=== PATIENT | female | born 1935 | race Caucasian/White ===

== ENCOUNTER 2021-10-06 10:23 | Emergency (ER) | payer MEDICARE ==
[~2021-10-06] VITALS: Ht 170.2 cm; Wt 68.0 kg
[~2021-10-06 10:23] MED LIST: ACCUPRIL20 MG PO; AMOXICILLIN/CL875 MG PO; ASA LO-DOSE81 MG OR; AUGMENTIN875TAB PO; BABY ASPIRIN81 MG PO; BENADRYL25 M1 PO; CIPRO500 MG PO; CIPROFLOXACN500 MG PO; CLARITIN-D1 TA1 PO; CLARITIN10 M1 PO; FISH OIL1000 M1 PO; HYDROCHLOROT25 MG PO; LIPITOR10 MG PO; LIPITOR40 MG OR; LISINOPRIL20 M1 PO; LISINOPRIL40 MG PO; LOPID600 MG PO; LUTEIN1 CAP PO; MULTIVITAMI1 OR; NIACIN500 M4 PO; NIACIN500 MG OR; OCUVIT1 PO; OCUVITE EYE PO; RED YEAST600 MG OR; TENORMIN25 M1 PO; VITAMIN D31000 UNI1 OR; [UNRECOGNIZED DRUG - OTHER] OR; [UNRECOGNIZED DRUG - OTHER] PO
[2021-10-06 12:14] LABS: HEMATOCRIT 53.8 % (37.0-47.0); HEMOGLOBIN 17.2 g/dl (12.0-16.0); IMMATURE GRANULOCYTES 0.3 % (0.0-5.0); MEAN CELL VOLUME 91.8 fL CALC (80.0-100.0); MEAN CORPUSCULAR HGB 29.4 pG CALC (26.0-32.0); NEUT# 7.71 thou/uL (2.00-7.15); RED BLOOD COUNT 5.86 mill/uL (4.20-5.60); RED CELL DISTRI WIDTH 12.9 % (11.5-15.5)
[2021-10-06 12:42] LABS: ALBUMIN 4.4 g/dL (3.2-5.0); ALKALINE PHOSPHATASE 82 u/l (38-126); AMYLASE 80 u/l (30-110); ANION GAP 12 (6-22 (CALC)); BILIRUBIN, TOTAL 1.1 mg/dL (0.0-1.4); BUN 13 mg/dL (8-23); BUN/CREATININE RATIO 14 (12-20 (CALC)); CARBON DIOXIDE 29 mmol/l (22-30); CHLORIDE 103 mmol/l (95-108); CREATININE 0.9 mg/dL (0.5-1.0); GFR 60 ML/MIN (>=60 (CALC)); GFR FOR AFR.AMER. > 60 ML/MIN (>=60 (CALC)); LIPASE 68 u/l (23-300); POTASSIUM 4.3 mmol/l (3.5-5.1); SGOT/AST 20 u/l (9-36); SODIUM 140 mmol/l (137-146)
[2021-10-06 14:09] LABS: URINE BILIRUBIN - DIPSTICK NEGATIVE (NEGATIVE); URINE COLOR YELLOW; URINE GLUCOSE - DIPSTICK NEGATIVE (NEGATIVE); URINE KETONE TRACE mg/dL (NEGATIVE); URINE LEUK ESTERASE NEGATIVE (NEGATIVE); URINE PH 6.5 (4.5-8.0); URINE UROBILINOGEN - DIPSTICK 0.2 E.U./dL (0.2)
[2021-10-06 14:11] LABS: URINE BLOOD DIPSTICK TRACE (NEGATIVE); URINE NITRITE - DIPSTICK NEGATIVE (Negative); URINE PROTEIN - DIPSTICK Trace mg/dL (NEG-TRACE)
[2021-10-06 15:40] VITALS: BP 148/97
[2021-10-06] MEDS ORDERED: ZOFRAN4 MG/TAB PO (15:40)
[2021-10-06] MEDS ORDERED: TAMSULOSIN0.4 MG PO (15:40)
[2021-10-06] MEDS ORDERED: HYDROCO/APAP1 TA9 PO (15:40)
== END 2021-10-06 15:58 | disposition home or self-care (01) ==
LOC: ED 10:23
DX: N20.1 Calculus of ureter (principal); I10 Essential (primary) hypertension; F17.200 Nicotine dependence, unspecified, uncomplicated
CPT/HCPCS: Q9967

== ENCOUNTER 2023-02-11 13:15 | Inpatient (IN) | payer MEDICARE ==
[~2023-02-11] VITALS: Ht 170.2 cm; Wt 63.0 kg
[~2023-02-11 13:15] MED LIST changes: +HYDROCO/APAP1 TA9 PO; +TAMSULOSIN0.4 MG PO; +ZOFRAN4 MG/TAB PO
[2023-02-11 13:46] LABS: BASO% 0.4 % (0-3); EOS% 0.1 % (0-8); HEMATOCRIT 46.2 % (37.0-47.0); HEMOGLOBIN 14.7 g/dl (12.0-16.0); IMMATURE GRANULOCYTES 0.2 % (0.0-5.0); LYMPH% 8.4 % (15-41); MEAN CELL VOLUME 93.3 fL CALC (80.0-100.0); MEAN CORPUSCULAR HGB 29.7 pG CALC (26.0-32.0); MEAN CORPUSCULAR HGB CONC 31.8 g/dL CAL (32.0-36.0); MONO% 6.3 % (2-13); NEUT# 6.89 thou/uL (2.00-7.15); NEUT% 84.6 % (42-76); RED BLOOD COUNT 4.95 mill/uL (4.20-5.60); RED CELL DISTRI WIDTH 13.1 % (11.5-15.5)
[2023-02-11 14:04] LABS: ALKALINE PHOSPHATASE 72 u/l (38-126); ANION GAP 15 (6-22 (CALC)); BILIRUBIN, TOTAL 1.6 mg/dL (0.02-1.3); BUN 14 mg/dL (8-23); BUN/CREATININE RATIO 19 (12-20 (CALC)); CARBON DIOXIDE 23 mmol/l (22-30); CHLORIDE 108 mmol/l (95-108); CREATININE 0.7 mg/dL (0.5-1.0); GFR FOR AFR.AMER. > 60 ML/MIN (>=60 (CALC)); GFR OTHER RACES > 60 ML/MIN (>=60 (CALC)); POTASSIUM 4.1 mmol/l (3.5-5.1); SGOT/AST 26 u/l (9-36); SODIUM 142 mmol/l (137-146); TOTAL PROTEIN 6.8 g/dL (6.3-8.2)
[2023-02-11] MEDS ORDERED: LOPRESSOR25 M1 PO (17:20)
[2023-02-11] MEDS ORDERED: LISINOPRIL20 M1 PO (17:21)
[2023-02-11] MEDS ORDERED: PRADAXA150 M1 (17:21)
[2023-02-11] MEDS ORDERED: ALBUTEROL108 MCG/AC (17:22)
[2023-02-12] VITALS (8 sets, daily range): BP systolic 110–138; BP diastolic 55–86
[2023-02-13 04:08] VITALS: BP 138/92
[2023-02-13 05:46] LABS: HEMATOCRIT 48.5 % (37.0-47.0); HEMOGLOBIN 15.3 g/dl (12.0-16.0); MEAN CORPUSCULAR HGB 29.7 pG CALC (26.0-32.0); MEAN CORPUSCULAR HGB CONC 31.5 g/dL CAL (32.0-36.0); RED BLOOD COUNT 5.16 mill/uL (4.20-5.60); RED CELL DISTRI WIDTH 13.4 % (11.5-15.5)
[2023-02-13 06:00] LABS: ALBUMIN 3.9 g/dL (3.2-5.0); ALKALINE PHOSPHATASE 57 u/l (38-126); ANION GAP 16 (6-22 (CALC)); BUN 26 mg/dL (8-23); BUN/CREATININE RATIO 28 (12-20 (CALC)); CARBON DIOXIDE 23 mmol/l (22-30); CHLORIDE 104 mmol/l (95-108); CREATININE 0.9 mg/dL (0.5-1.0); GFR FOR AFR.AMER. > 60 ML/MIN (>=60 (CALC)); GFR OTHER RACES 59 ML/MIN (>=60 (CALC)); MAGNESIUM 2.3 mg/dL (1.6-2.3); POTASSIUM 4.9 mmol/l (3.5-5.1); SGOT/AST 29 u/l (9-36); SODIUM 138 mmol/l (137-146); TOTAL PROTEIN 6.9 g/dL (6.3-8.2)
[2023-02-13 06:05] LABS: BILIRUBIN, TOTAL 0.7 mg/dL (0.02-1.3)
[2023-02-13 08:00] VITALS: BP 135/72
[2023-02-13 16:14] VITALS: BP 130/72
[2023-02-13 20:51] VITALS: BP 130/75
[2023-02-14 00:32] VITALS: BP 122/74
[2023-02-14 05:05] VITALS: BP 137/74
[2023-02-14 06:09] LABS: HEMATOCRIT 51.5 % (37.0-47.0); HEMOGLOBIN 15.9 g/dl (12.0-16.0); MEAN CELL VOLUME 96.8 fL CALC (80.0-100.0); MEAN CORPUSCULAR HGB 29.9 pG CALC (26.0-32.0); MEAN CORPUSCULAR HGB CONC 30.9 g/dL CAL (32.0-36.0); RED BLOOD COUNT 5.32 mill/uL (4.20-5.60); RED CELL DISTRI WIDTH 13.7 % (11.5-15.5)
[2023-02-14 06:20] VITALS: BP 128/70
[2023-02-14 06:42] LABS: ALBUMIN 3.8 g/dL (3.2-5.0); ALKALINE PHOSPHATASE 52 u/l (38-126); ANION GAP 18 (6-22 (CALC)); BILIRUBIN, TOTAL 0.9 mg/dL (0.02-1.3); BUN 30 mg/dL (8-23); BUN/CREATININE RATIO 34 (12-20 (CALC)); CARBON DIOXIDE 20 mmol/l (22-30); CHLORIDE 104 mmol/l (95-108); CREATININE 0.9 mg/dL (0.5-1.0); GFR FOR AFR.AMER. > 60 ML/MIN (>=60 (CALC)); GFR OTHER RACES 59 ML/MIN (>=60 (CALC)); MAGNESIUM 2.5 mg/dL (1.6-2.3); SGOT/AST 36 u/l (9-36); SODIUM 137 mmol/l (137-146)
[2023-02-14 14:15] VITALS: BP 122/76
[2023-02-14 19:46] VITALS: BP 132/74
[2023-02-14 23:57] VITALS: BP 121/70
[2023-02-15 05:19] VITALS: BP 122/70
[2023-02-15 07:04] VITALS: BP 138/68
[2023-02-15 07:31] LABS: BASO% 0.1 % (0-3); HEMATOCRIT 46.5 % (37.0-47.0); HEMOGLOBIN 14.7 g/dl (12.0-16.0); IMMATURE GRANULOCYTES 0.3 % (0.0-5.0); MEAN CORPUSCULAR HGB 29.4 pG CALC (26.0-32.0); MEAN CORPUSCULAR HGB CONC 31.6 g/dL CAL (32.0-36.0); MONO% 2.7 % (2-13); NEUT# 6.3 thou/uL (2.00-7.15); NEUT% 92.9 % (42-76); RED CELL DISTRI WIDTH 13.1 % (11.5-15.5)
[2023-02-15 08:09] LABS: ALBUMIN 3.6 g/dL (3.2-5.0); ALKALINE PHOSPHATASE 55 u/l (38-126); BILIRUBIN, TOTAL 0.9 mg/dL (0.02-1.3); BUN 31 mg/dL (8-23); BUN/CREATININE RATIO 40 (12-20 (CALC)); CHLORIDE 104 mmol/l (95-108); CREATININE 0.8 mg/dL (0.5-1.0); GFR FOR AFR.AMER. > 60 ML/MIN (>=60 (CALC)); GFR OTHER RACES > 60 ML/MIN (>=60 (CALC)); MAGNESIUM 2.4 mg/dL (1.6-2.3); SGOT/AST 37 u/l (9-36); SODIUM 137 mmol/l (137-146); TOTAL PROTEIN 6.1 g/dL (6.3-8.2)
[2023-02-15 08:11] LABS: ANION GAP 11 (6-22 (CALC)); CARBON DIOXIDE 27 mmol/l (22-30); POTASSIUM 5.3 mmol/l (3.5-5.1)
[2023-02-15 11:03] VITALS: BP 130/70
[2023-02-15] MEDS ORDERED: PREDNISONE10 MG PO (14:14)
[2023-02-15] MEDS ORDERED: VIBRAMYCIN100 M2 PO (14:16)
[2023-02-15] MEDS ORDERED: LASIX 20 MG TAB20 MG PO (14:24)
== END 2023-02-15 15:20 | disposition home health service (06) | DRG 193 ==
LOC: ED 13:15 → ED-I 16:07 → ED 16:22 → MS2 16:23
PROVIDERS: Family Medicine; Nurse Practitioner Family; ADMIT Internal Medicine; ATTEND Internal Medicine
DX: J18.9 Pneumonia, unspecified organism (principal); J96.21 Acute and chronic respiratory failure with hypoxia; I11.0 Hypertensive heart disease with heart failure; J43.9 Emphysema, unspecified; I50.9 Heart failure, unspecified; I48.91 Unspecified atrial fibrillation; Z87.891 Personal history of nicotine dependence; Z20.822 Contact with and (suspected) exposure to COVID-19
CPT/HCPCS: Q9967

== ENCOUNTER 2023-02-16 07:09 | Observation (INO) | payer MEDICARE ==
[2023-02-16] VITALS (14 sets, daily range): BP systolic 136–191; BP diastolic 87–128
[~2023-02-16] VITALS: Ht 170.2 cm; Wt 59.2 kg
[~2023-02-16 07:09] MED LIST changes: +ALBUTEROL108 MCG/AC; +LASIX 20 MG TAB20 MG PO; +LOPRESSOR25 M1 PO; +PRADAXA150 M1; +PREDNISONE10 MG PO; +VIBRAMYCIN100 M2 PO
--- NOTE | 2023-02-16 07:09 | NUR ---
PATIENT TO ROOM VIA EMS
--- NOTE | 2023-02-16 08:00 | NUR ---
RECTAL TEMPERATURE WAS 99.1 DEGREES F. NOTIFIED
--- NOTE | 2023-02-16 08:00 | NUR ---
PATIENT ASSISTED TO BEDSIDE COMODE
[2023-02-16 08:10] LABS: BASO% 0.1 % (0-3); HEMATOCRIT 48.4 % (37.0-47.0); HEMOGLOBIN 15.5 g/dl (12.0-16.0); IMMATURE GRANULOCYTES 0.8 % (0.0-5.0); LYMPH% 2.3 % (15-41); MEAN CELL VOLUME 93.1 fL CALC (80.0-100.0); MEAN CORPUSCULAR HGB 29.8 pG CALC (26.0-32.0); MONO% 5.2 % (2-13); NEUT# 8.68 thou/uL (2.00-7.15); NEUT% 91.6 % (42-76); RED BLOOD COUNT 5.2 mill/uL (4.20-5.60); RED CELL DISTRI WIDTH 13.3 % (11.5-15.5)
[2023-02-16 08:13] LABS: ALBUMIN 3.8 g/dL (3.2-5.0); ALKALINE PHOSPHATASE 71 u/l (38-126); ANION GAP 15 (6-22 (CALC)); BILIRUBIN, TOTAL 0.6 mg/dL (0.02-1.3); BUN 35 mg/dL (8-23); BUN/CREATININE RATIO 38 (12-20 (CALC)); CARBON DIOXIDE 24 mmol/l (22-30); CHLORIDE 105 mmol/l (95-108); CREATININE 0.9 mg/dL (0.5-1.0); GFR FOR AFR.AMER. > 60 ML/MIN (>=60 (CALC)); GFR OTHER RACES 59 ML/MIN (>=60 (CALC)); POTASSIUM 4.8 mmol/l (3.5-5.1); SGOT/AST 60 u/l (9-36); SODIUM 139 mmol/l (137-146); TOTAL PROTEIN 6.5 g/dL (6.3-8.2)
--- NOTE | 2023-02-16 08:15 | NUR ---
LACTIC ACIDE 3.6, MADE AWARE
--- NOTE | 2023-02-16 08:41 | NUR ---
MD AT BESIDE TO DISCUSS PLAN OF CARE
--- NOTE | 2023-02-16 09:45 | NUR ---
ASSISTED PATIENT TO BEDSIDE COMODE
--- NOTE | 2023-02-16 10:16 | NUR ---
ASSISTED PATIENT TO BSC.
--- NOTE | 2023-02-16 10:53 | NUR ---
CALLED REPORT TO GG ON MED SURG. SHE VERIFIED REPORT RECIEVED. PATIENT TRANSFERRED UPSTAIRS VIA WHEELCHAIR
--- NOTE | 2023-02-16 12:00 | NUR ---
PT A/OX3 ASSESSMENT AND VS COMPLETED. HEART MONITOR FOUND ON BED NOT CONNECTED TO PT . PT ATTACHED TO MONITOR. IV SITE NOTED TO LEFT ARM ABX INFUSING. PT ON OXYGEN PT USES OXYGEN AT HOME. PT AMBULATORY TO BSC. PT DENIES ADDITIONAL NEEDS AT THE TIME ALL SAFETY PRECAUTIONS IN PLACE PT ARRIVED TO MS [id number]
--- NOTE | 2023-02-16 16:07 | NUR ---
PT RESTING IN HIGH FOWLERS POSITION. PT DENIES ADDITIONAL NEEDS AT THIS TIME VISITOR AT BEDSIDE.
--- NOTE | 2023-02-16 19:30 | NUR ---
PT SITTING IN BED EATING DINNER NO S/S OF DISTESS NOTED. CALL LIGHT IN REACH BED IN LOWEST POSITION.
[2023-02-17] VITALS (9 sets, daily range): BP systolic 130–188; BP diastolic 76–121
--- NOTE | 2023-02-17 00:20 | NUR ---
PT IN BED RESTING WITH EYES CLOSED BREATHING EVEN AND UNLABORED. NO S/S OF DISTRESS NOTED. CALL LIGHT IN REACH
[2023-02-17 05:27] LABS: HEMATOCRIT 44.1 % (37.0-47.0); HEMOGLOBIN 14.4 g/dl (12.0-16.0); MEAN CELL VOLUME 91.9 fL CALC (80.0-100.0); MEAN CORPUSCULAR HGB CONC 32.7 g/dL CAL (32.0-36.0); RED BLOOD COUNT 4.8 mill/uL (4.20-5.60); RED CELL DISTRI WIDTH 13.2 % (11.5-15.5)
[2023-02-17 06:00] LABS: ALBUMIN 3.1 g/dL (3.2-5.0); CREATININE 1.1 mg/dL (0.5-1.0); MAGNESIUM 2.3 mg/dL (1.6-2.3); POTASSIUM 4.1 mmol/l (3.5-5.1); TOTAL PROTEIN 5.3 g/dL (6.3-8.2)
[2023-02-17 06:14] LABS: BILIRUBIN, TOTAL 1.2 mg/dL (0.02-1.3)
--- NOTE | 2023-02-17 06:40 | NUR ---
PT BP IS ELEVATED THIS AM. PT MEDICATED ORDER BY RN.
--- NOTE | 2023-02-17 16:00 | NUR ---
NO CHANGES PATIENT RESTING. PATIENT ABLE TO USE BSC WITHOUT ASSISTANCE. PATIENT HAD TO GET A NEW IV DUE TO THE LAST ONE LEAKING. PATIENT'S ARM HAVE MULTIPLE BRUISES AND BILATERAL SKIN TEARS. DRESSINGS ARE IN PLACE ON THE SKIN TEARS. PATIENT HAD FIRENDS VISIT HER TODAY. PATIENT REPORTS NO PAIN. PATIENT REPORTS FEELING BETTER AND NO PAIN. WILL CONTINUE TO MONITOR.
--- NOTE | 2023-02-17 21:30 | NUR ---
PT IN BE AWAKE. NO S/S OF DISTRESS NOTED BREATHING EVEN AND UNLABORED. ASSESMENT COMPLETED. CALLING IN REACH AND BED IN LOWEST POSITION.
[2023-02-18] VITALS (9 sets, daily range): BP systolic 124–169; BP diastolic 77–111
--- NOTE | 2023-02-18 04:00 | NUR ---
PT IN BED RESTING WITH EYES CLOSED BREATHING EVEN AND UNLABORED NO S/S OF DISTRESS NOTED. CALL LIGHT IN REACH AND BED IN LOWEST POSITION.
[2023-02-18 05:48] LABS: HEMATOCRIT 47.6 % (37.0-47.0); HEMOGLOBIN 15.4 g/dl (12.0-16.0); MEAN CELL VOLUME 91.4 fL CALC (80.0-100.0); MEAN CORPUSCULAR HGB 29.6 pG CALC (26.0-32.0); MEAN CORPUSCULAR HGB CONC 32.4 g/dL CAL (32.0-36.0); RED BLOOD COUNT 5.21 mill/uL (4.20-5.60); RED CELL DISTRI WIDTH 13.3 % (11.5-15.5)
[2023-02-18 06:14] LABS: ALBUMIN 3.3 g/dL (3.2-5.0); ALKALINE PHOSPHATASE 43 u/l (38-126); ANION GAP 10 (6-22 (CALC)); BILIRUBIN, TOTAL 1.3 mg/dL (0.02-1.3); BUN 35 mg/dL (8-23); BUN/CREATININE RATIO 39 (12-20 (CALC)); CARBON DIOXIDE 30 mmol/l (22-30); CHLORIDE 101 mmol/l (95-108); CREATININE 0.9 mg/dL (0.5-1.0); GFR FOR AFR.AMER. > 60 ML/MIN (>=60 (CALC)); GFR OTHER RACES 59 ML/MIN (>=60 (CALC)); MAGNESIUM 2.3 mg/dL (1.6-2.3); POTASSIUM 3.9 mmol/l (3.5-5.1); SGOT/AST 22 u/l (9-36); SODIUM 138 mmol/l (137-146); TOTAL PROTEIN 5.5 g/dL (6.3-8.2)
--- NOTE | 2023-02-18 06:30 | NUR ---
IV STARTED LEAKING. NEW IV STARTED BY CLINICAL SCIENCE LIAISON WITHOUT COMPLICATIONS. CALL LIGHT IN REACH AND BED IN LOWEST POSITION.
--- NOTE | 2023-02-18 08:00 | NUR ---
PATIENT RESTING IN BED. REPORTS NO PAIN. ASSESSMENT DONE. PATIENT STILL ON NC 2L O2. LUNGS SOUND CLEAR BUT DIMINISH AT THE BOTTOM. PATIENT STATING THAT SHE FEELS BETTER AND THAT HER BREATHING HAS IMPROVED. WILL CONTINUE TO MONITOR.
--- NOTE | 2023-02-18 12:00 | NUR ---
PATIENT SETTING ON SIDE OF BED. MULTIPLE FAMILY MEMBERS AND FRIENDS AT BEDSIDE. MD WAS ABLE TO GIVE PATIENT AN UPDATE WITH FAMILY THERE. CARDIOLOGY WAS CONSULT. AWAITING FURTHER RECOMENDATION. PATIENT STILL REPORTING NO PAIN AND FEELING BETTER. WILL CONTINUE TO MONITOR.
--- NOTE | 2023-02-18 13:38 | NUR ---
called office at [phone] spoke to heide stated she will hand off the information on this pt to the nurse and they will call back.
--- NOTE | 2023-02-18 16:00 | NUR ---
PATIENT RESTING NO CHANGES AT THIS TIME. WILL CONTINUE TO MONITOR.
--- NOTE | 2023-02-18 17:10 | NUR ---
PRELIMINARY BLOOD CULTURES CALLED TO / VIALS GROWING GRAM (+) COCCI. NO NEW ORDERS AT THIS TIME.
--- NOTE | 2023-02-18 20:00 | NUR ---
RECEIVED REPOR FROM NURSE PENALOZA, PATIENT RESTING IN BED, ALERT ORIENTED ABLE TO MAKE NEEDS KNONW, HAS SALINE LOCK ON RT WRIST, PATENT AND FLUSHES WELL HOOKED ON TELEMETRY, LUNG SOUNDS CLEAR, HOOKED ON O2 @ 3LPM VIA NC, BREATHING SHALLOW, UNLABORED, CALL LIGHT IN REACH.
[2023-02-19] VITALS (11 sets, daily range): BP systolic 138–173; BP diastolic 84–97
--- NOTE | 2023-02-19 | NUR ---
DUE ZOSYN CURRENTLY INFUSING, REMAINS ON O2 @ 2.5LPM VIA NC, NOT IN DISTRESS CALL LIGHT IN REACH.
--- NOTE | 2023-02-19 05:00 | NUR ---
TECH IN ROOM FOR MORNING BLOOD DRAW, PATIENT REMAINS ON O2 @ 2.5 LPM, BREATHING UNLABORED CALL LIGHT IN REACH.
[2023-02-19 06:00] LABS: ALBUMIN 3.2 g/dL (3.2-5.0); ALKALINE PHOSPHATASE 43 u/l (38-126); ANION GAP 10 (6-22 (CALC)); BILIRUBIN, TOTAL 1.6 mg/dL (0.02-1.3); BUN 34 mg/dL (8-23); BUN/CREATININE RATIO 36 (12-20 (CALC)); CARBON DIOXIDE 33 mmol/l (22-30); CHLORIDE 99 mmol/l (95-108); GFR FOR AFR.AMER. > 60 ML/MIN (>=60 (CALC)); GFR OTHER RACES 52 ML/MIN (>=60 (CALC)); MAGNESIUM 2.4 mg/dL (1.6-2.3); POTASSIUM 3.8 mmol/l (3.5-5.1); SGOT/AST 26 u/l (9-36); SODIUM 137 mmol/l (137-146); TOTAL PROTEIN 5.5 g/dL (6.3-8.2)
--- NOTE | 2023-02-19 08:00 | NUR ---
Alert and oriented patient x3. Assessment head-to-toe complete. Patient does not refer pain at the time of this note. Pt connected to telemetry. Good heart and respiratory rhythm at the time of this note. Patient is educated about medications, nursing plan and for today. Patient refers to understanding. Safety and fall precautions in place. Call light within in reach.
--- NOTE | 2023-02-19 12:08 | NUR ---
PATIENT IN ECHO.
--- NOTE | 2023-02-19 16:00 | NUR ---
PATIENT STABLE AT THE TIME OF THIS NOTE. SAFETY AND FALL PRECAUTIONS IN PLACE. CALL LIGHT WITHIN IN REACH.
--- NOTE | 2023-02-19 20:00 | NUR ---
RECEIVED REPORT FROM NURSE VELÁZQUEZ PATIENT RESTING IN BED WATCHING TV, HOOKE ON O2 @ 2.5 LPM SPO2 95%, LUNG SOUNDS DIMINISHED, DENIES PAIN AT THIS TIME, ACTIVE BOWEL SOUNDS, PATIENT NOTE IN DISTRESS CALL LIGHT IN REACH.
--- NOTE | 2023-02-20 | NUR ---
DUE ZOSYN CURRENTLY INFUSING PATIENT REMAINS ON O2 @ 2.5LPM BREATHING UNLBAORED, CALL LIGHT IN REACH.
[2023-02-20 00:47] VITALS: BP 142/88
[2023-02-20 03:00] VITALS: BP 162/115
--- NOTE | 2023-02-20 03:03 | NUR ---
PATIENT C/O CHEST PRESSURE FEELS LIKE INDIGESTION, V/S TAKEN, STAT EKG ORDERED AND TROPONIN.
[2023-02-20 03:25] LABS: HEMATOCRIT 51.7 % (37.0-47.0); HEMOGLOBIN 16.5 g/dl (12.0-16.0); MEAN CELL VOLUME 92.3 fL CALC (80.0-100.0); MEAN CORPUSCULAR HGB 29.5 pG CALC (26.0-32.0); MEAN CORPUSCULAR HGB CONC 31.9 g/dL CAL (32.0-36.0); RED BLOOD COUNT 5.6 mill/uL (4.20-5.60)
[2023-02-20 03:33] LABS: ALBUMIN 3.5 g/dL (3.2-5.0); CREATININE 1.1 mg/dL (0.5-1.0); MAGNESIUM 2.3 mg/dL (1.6-2.3); TOTAL PROTEIN 5.9 g/dL (6.3-8.2)
[2023-02-20 03:44] LABS: POTASSIUM 3.6 mmol/l (3.5-5.1)
[2023-02-20 04:44] VITALS: BP 158/98
--- NOTE | 2023-02-20 04:46 | NUR ---
PATIENT STATED FEEL BETTER, DENIES PAIN AT THIS TIME, REMAINS ON O2 @ 2.5LPM VIA NC, NOT IN DISTRESS CALL LIGHT IN RAECH.
[2023-02-20 07:00] VITALS: BP 139/78
--- NOTE | 2023-02-20 07:00 | NUR ---
RECEIVE REPORT FROM KIRSTIN KEY. PT STABLE RESTING IN BED WITH EYE CLOSE. SAFETY AND FALL PRECAUTIONS IN PLACE. CALL LIGHT WITHIN IN REACH.
[2023-02-20 08:00] VITALS: BP 158/98
[2023-02-20] MEDS ORDERED: LASIX 40 MG TAB40 MG PO (11:55)
[2023-02-20 12:00] VITALS: BP 158/98
--- NOTE | 2023-02-20 12:00 | NUR ---
PATIENT STABLE AT THE TIME OF THIS NOTE. SAFETY AND FALL PRECAUTIONS IN PLACE. CALL LIGHT WITHIN IN REACH.
--- NOTE | 2023-02-20 14:07 | NUR ---
Discharge instructions given. Patient verbalizes understanding of same. Discharged in stable condition via Wheelchair to Home with staff. All belongings sent with pt.
== END 2023-02-20 14:06 | disposition home health service (06) ==
LOC: ED 07:09 → ED-I 09:20 → ED 09:44 → MS2 09:45
PROVIDERS: Family Medicine; ADMIT Internal Medicine; ATTEND Internal Medicine
DX: I11.0 Hypertensive heart disease with heart failure (principal); I50.9 Heart failure, unspecified; J18.9 Pneumonia, unspecified organism; J43.9 Emphysema, unspecified; J96.21 Acute and chronic respiratory failure with hypoxia; I48.91 Unspecified atrial fibrillation; Z87.891 Personal history of nicotine dependence; Z20.822 Contact with and (suspected) exposure to COVID-19

== ENCOUNTER 2023-07-17 10:18 | Emergency (ER) | payer MEDICARE ==
[2023-07-17] VITALS (10 sets, daily range): BP systolic 144–191; BP diastolic 95–136
[~2023-07-17] VITALS: Ht 170.2 cm; Wt 60.0 kg
[~2023-07-17 10:18] MED LIST changes: +LASIX 40 MG TAB40 MG PO
[2023-07-17] MEDS ORDERED: TRELEGY ELLIPTA1 AER IN (10:34)
[2023-07-17 10:50] LABS: BASO% 0.5 % (0-3); EOS% 0.9 % (0-8); HEMATOCRIT 52.7 % (37.0-47.0); HEMOGLOBIN 17.2 g/dl (12.0-16.0); IMMATURE GRANULOCYTES 1.2 % (0.0-5.0); MEAN CELL VOLUME 92.5 fL CALC (80.0-100.0); MEAN CORPUSCULAR HGB 30.2 pG CALC (26.0-32.0); MEAN CORPUSCULAR HGB CONC 32.6 g/dL CAL (32.0-36.0); MONO% 10.1 % (2-13); NEUT# 5.64 thou/uL (2.00-7.15); NEUT% 72.3 % (42-76); RED BLOOD COUNT 5.7 mill/uL (4.20-5.60)
[2023-07-17 11:21] LABS: ALBUMIN 4.6 g/dL (3.2-5.0); ALKALINE PHOSPHATASE 66 u/l (38-126); ANION GAP 14 (6-22 (CALC)); BUN 16 mg/dL (8-23); BUN/CREATININE RATIO 19 (12-20 (CALC)); CARBON DIOXIDE 29 mmol/l (22-30); CHLORIDE 101 mmol/l (95-108); CREATININE 0.8 mg/dL (0.5-1.0); GFR FOR AFR.AMER. > 60 ML/MIN (>=60 (CALC)); GFR OTHER RACES > 60 ML/MIN (>=60 (CALC)); POTASSIUM 4.4 mmol/l (3.5-5.1); SGOT/AST 27 u/l (9-36); SODIUM 140 mmol/l (137-146); TOTAL PROTEIN 8.2 g/dL (6.3-8.2)
[2023-07-17 11:22] LABS: BILIRUBIN, TOTAL 1.6 mg/dL (0.02-1.3)
== END 2023-07-17 14:50 | disposition home or self-care (01) ==
LOC: ED 10:18
PROVIDERS: Family Medicine
DX: M54.6 Pain in thoracic spine (principal); Z20.822 Contact with and (suspected) exposure to COVID-19; J44.9 Chronic obstructive pulmonary disease, unspecified; I48.91 Unspecified atrial fibrillation; I10 Essential (primary) hypertension; M54.50 Low back pain, unspecified
CPT/HCPCS: Q9967

== ENCOUNTER 2024-01-05 08:10 | Inpatient (IN) | payer MEDICARE ==
[~2024-01-05] VITALS: Ht 170.2 cm; Wt 57.4 kg
[2024-01-05] VITALS (31 sets, daily range): BP systolic 85–129; BP diastolic 57–92
[~2024-01-05 08:10] MED LIST changes: +TRELEGY ELLIPTA1 AER IN
[2024-01-05] MEDS ORDERED: DILTIAZEM HCL 125 MG in SODIUM CHLORIDE 0.9% 100 ML IV ONE (08:20)
[2024-01-05] MEDS ORDERED: IPRATROPIUM-Albuterol 0.5MG-2.5MG/3 ML NEB ONE ×2 (08:20)
[2024-01-05] MEDS ORDERED: SODIUM CHLORIDE 0.9% 500 ML IV ONE (08:20)
[2024-01-05] MEDS ORDERED: cefTRIAXone SODIUM 2 GM in SODIUM CHLORIDE 0.9% 100 ML IV ONE (08:20)
[2024-01-05 09:10] LABS: BASO% 0.8 % (0-3); EOS% 1.5 % (0-8); HEMATOCRIT 51.1 % (37.0-47.0); HEMOGLOBIN 15.9 g/dl (12.0-16.0); IMMATURE GRANULOCYTES 1.4 % (0.0-5.0); LYMPH% 18.4 % (15-41); MEAN CELL VOLUME 97.1 fL CALC (80.0-100.0); MEAN CORPUSCULAR HGB 30.2 pG CALC (26.0-32.0); MEAN CORPUSCULAR HGB CONC 31.1 g/dL CAL (32.0-36.0); MONO% 9.1 % (2-13); NEUT# 7.06 thou/uL (2.00-7.15); NEUT% 68.8 % (42-76); RED BLOOD COUNT 5.26 mill/uL (4.20-5.60); RED CELL DISTRI WIDTH 12.9 % (11.5-15.5)
[2024-01-05 09:16] LABS: ALBUMIN 4.2 g/dL (3.2-5.0); ALKALINE PHOSPHATASE 78 u/l (38-126); ANION GAP 19 (6-22 (CALC)); BILIRUBIN, TOTAL 1.5 mg/dL (0.02-1.3); BUN 15 mg/dL (8-23); BUN/CREATININE RATIO 16 (12-20 (CALC)); CHLORIDE 104 mmol/l (95-108); CREATININE 0.9 mg/dL (0.5-1.0); GFR FOR AFR.AMER. > 60 ML/MIN (>=60 (CALC)); GFR OTHER RACES 59 ML/MIN (>=60 (CALC)); POTASSIUM 4.7 mmol/l (3.5-5.1); SGOT/AST 34 u/l (9-36); SODIUM 140 mmol/l (137-146); TOTAL PROTEIN 7.2 g/dL (6.3-8.2)
[2024-01-05 09:17] LABS: PROTHROMBIN TIME 12.4 SECONDS (9.0-12.5)
[2024-01-05 09:27] LABS: CARBON DIOXIDE 22 mmol/l (22-30)
[2024-01-05 09:28] LABS: INTERNATIONAL NORMALIZED RATIO 1.3 RATIO (0.7-1.3)
[2024-01-05] MEDS ORDERED: FUROSEMIDE20 MG PO (11:12)
[2024-01-05] MEDS ORDERED: XARELTO20 MG PO (11:12)
[2024-01-05] MEDS ORDERED: LISINOPRIL10 MG PO (11:13)
[2024-01-05] MEDS ORDERED: MAGNESIUM HYDROXIDE 30 ML UDC PO PRN (11:25)
[2024-01-05] MEDS ORDERED: ACETAMINOPHEN 325 MG/TAB PO PRN (11:25)
[2024-01-05] MEDS ORDERED: AZITHROMYCIN 500 MG in SODIUM CHLORIDE 0.9% 250 ML IV SCH (11:25)
[2024-01-05] MEDS ORDERED: DOXYCYCLINE HYCLATE 100 MG/CAP PO SCH (11:30)
[2024-01-05] MEDS ORDERED: DIGOXIN 0.25 MG/TAB PO SCH (12:00)
[2024-01-05] MEDS ORDERED: LEVALBUTEROL HCL 1.25 MG/3 ML VIAL NEB SCH (15:00)
[2024-01-05] MEDS ORDERED: IPRATROPIUM BROMIDE 0.5 MG/2.5 ML SOL IN SCH (15:00)
[2024-01-05] MEDS ORDERED: INSULIN LISPRO 100 UNITS/ML ML SC SCH (17:00)
[2024-01-05] MEDS ORDERED: RIVAROXABAN 10 MG TAB PO SCH (17:30)
[2024-01-05 18:09] LABS: URINE BILIRUBIN - DIPSTICK Negative (NEGATIVE); URINE BLOOD DIPSTICK Negative (NEGATIVE); URINE COLOR Dark yellow; URINE GLUCOSE - DIPSTICK Negative (NEGATIVE); URINE KETONE Trace mg/dL (NEGATIVE); URINE LEUK ESTERASE Trace (NEGATIVE); URINE NITRITE - DIPSTICK Negative (Negative); URINE PH 5.5 (4.5-8.0); URINE PROTEIN - DIPSTICK 100 mg/dL (NEG-TRACE); URINE SPECIFIC GRAVITY >=1.030; URINE UROBILINOGEN - DIPSTICK 0.2 E.U./dL (0.2)
[2024-01-05 18:17] LABS: URINE BACTERIA FEW hpf; URINE SQUAMOUS EPITHELIAL CELL FEW EPI/hpf (0-FEW); URINE WBC 0-2 WBC/hpf (0-5)
[2024-01-05] MEDS ORDERED: METOPROLOL TARTRATE 25 MG/TAB PO SCH (21:00)
[2024-01-05] MEDS ORDERED: methylPREDNISolone Sod Succ 40 MG/ML SDV IV SCH (21:00)
[2024-01-06] VITALS (7 sets, daily range): BP systolic 116–152; BP diastolic 67–96
[2024-01-06 05:15] LABS: BASO% 0.3 % (0-3); EOS% 0.1 % (0-8); HEMOGLOBIN 14.4 g/dl (12.0-16.0); IMMATURE GRANULOCYTES 0.8 % (0.0-5.0); LYMPH% 4.6 % (15-41); MEAN CELL VOLUME 93.5 fL CALC (80.0-100.0); MEAN CORPUSCULAR HGB 30.4 pG CALC (26.0-32.0); MEAN CORPUSCULAR HGB CONC 32.5 g/dL CAL (32.0-36.0); MONO% 1.5 % (2-13); NEUT# 6.6 thou/uL (2.00-7.15); NEUT% 92.7 % (42-76); RED BLOOD COUNT 4.74 mill/uL (4.20-5.60); RED CELL DISTRI WIDTH 12.9 % (11.5-15.5)
[2024-01-06 05:16] LABS: HEMATOCRIT 44.3 % (37.0-47.0)
[2024-01-06 05:30] LABS: ALBUMIN 3.5 g/dL (3.2-5.0); ALKALINE PHOSPHATASE 49 u/l (38-126); ANION GAP 13 (6-22 (CALC)); BILIRUBIN, TOTAL 1.3 mg/dL (0.02-1.3); BUN 22 mg/dL (8-23); BUN/CREATININE RATIO 34 (12-20 (CALC)); CALCULATED LDLCHOLESTEROL 171 mg/dL (62-129 (CALC)); CARBON DIOXIDE 21 mmol/l (22-30); CHLORIDE 106 mmol/l (95-108); CHOLESTEROL HDL RATIO 4.9 (<4.4 (CALC)); CREATININE 0.6 mg/dL (0.5-1.0); GFR FOR AFR.AMER. > 60 ML/MIN (>=60 (CALC)); GFR OTHER RACES > 60 ML/MIN (>=60 (CALC)); HDL CHOLESTEROL 49 mg/dL (39.0-59.0); MAGNESIUM 2.1 mg/dL (1.6-2.3); POTASSIUM 5.4 mmol/l (3.5-5.1); SGOT/AST 36 u/l (9-36); SODIUM 135 mmol/l (137-146); TOTAL CHOLESTEROL 239 mg/dl (0-199); TOTAL PROTEIN 6.2 g/dL (6.3-8.2); TOTAL TRIGLYCERIDES 99 mg/dl (0-149); VLDL CHOLESTROL 20 mg/dl (0-48 (CALC))
[2024-01-06] MEDS ORDERED: IPRATROPIUM BROMIDE 0.5 MG/2.5 ML SOL IN PRN (08:51)
[2024-01-06] MEDS ORDERED: LEVALBUTEROL HCL 1.25 MG/3 ML VIAL NEB PRN (08:51)
[2024-01-06] MEDS ORDERED: FUROSEMIDE 40 MG/4 ML SDV IV SCH (09:00)
[2024-01-06] MEDS ORDERED: SODIUM ZIRCONIUM CYCLOSILICATE 10 GM PAK PO SCH (09:30)
[2024-01-06] MEDS ORDERED: RIVAROXABAN 15 MG TAB PO SCH (17:30)
[2024-01-06] MEDS ORDERED: METOPROLOL TARTRATE 50 MG/TAB PO SCH (21:00)
[2024-01-07 04:36] VITALS: BP 143/83
[2024-01-07 05:51] LABS: BASO% 0.2 % (0-3); HEMATOCRIT 43.4 % (37.0-47.0); HEMOGLOBIN 14.3 g/dl (12.0-16.0); IMMATURE GRANULOCYTES 0.6 % (0.0-5.0); LYMPH% 3.7 % (15-41); MEAN CELL VOLUME 92.7 fL CALC (80.0-100.0); MEAN CORPUSCULAR HGB 30.6 pG CALC (26.0-32.0); MEAN CORPUSCULAR HGB CONC 32.9 g/dL CAL (32.0-36.0); MONO% 2.9 % (2-13); NEUT# 10.69 thou/uL (2.00-7.15); NEUT% 92.6 % (42-76); RED BLOOD COUNT 4.68 mill/uL (4.20-5.60); RED CELL DISTRI WIDTH 12.8 % (11.5-15.5)
[2024-01-07 06:05] LABS: ALBUMIN 3.4 g/dL (3.2-5.0); ALKALINE PHOSPHATASE 71 u/l (38-126); BILIRUBIN, TOTAL 0.9 mg/dL (0.02-1.3); BUN 34 mg/dL (8-23); BUN/CREATININE RATIO 42 (12-20 (CALC)); CHLORIDE 104 mmol/l (95-108); CREATININE 0.8 mg/dL (0.5-1.0); GFR FOR AFR.AMER. > 60 ML/MIN (>=60 (CALC)); GFR OTHER RACES > 60 ML/MIN (>=60 (CALC)); MAGNESIUM 2.2 mg/dL (1.6-2.3); POTASSIUM 4.8 mmol/l (3.5-5.1); SGOT/AST 27 u/l (9-36); SODIUM 137 mmol/l (137-146); TOTAL PROTEIN 6.1 g/dL (6.3-8.2)
[2024-01-07 06:21] LABS: ANION GAP 11 (6-22 (CALC)); CARBON DIOXIDE 27 mmol/l (22-30)
[2024-01-07 07:18] VITALS: BP 141/91
[2024-01-07] MEDS ORDERED: LISINOPRIL 10 MG/TAB PO SCH (09:00)
[2024-01-07 10:43] VITALS: BP 139/87
[2024-01-07 15:23] VITALS: BP 132/81
[2024-01-07 19:36] VITALS: BP 130/77
[2024-01-07 23:53] VITALS: BP 168/98
[2024-01-08 03:50] VITALS: BP 139/79
[2024-01-08 06:33] LABS: BASO% 0.2 % (0-3); HEMATOCRIT 42.5 % (37.0-47.0); HEMOGLOBIN 13.8 g/dl (12.0-16.0); IMMATURE GRANULOCYTES 0.4 % (0.0-5.0); LYMPH% 3.5 % (15-41); MEAN CORPUSCULAR HGB 30.2 pG CALC (26.0-32.0); MEAN CORPUSCULAR HGB CONC 32.5 g/dL CAL (32.0-36.0); MONO% 2.6 % (2-13); NEUT# 8.99 thou/uL (2.00-7.15); NEUT% 93.3 % (42-76); RED BLOOD COUNT 4.57 mill/uL (4.20-5.60)
[2024-01-08 06:37] LABS: ANION GAP 9 (6-22 (CALC)); BUN 44 mg/dL (8-23); BUN/CREATININE RATIO 50 (12-20 (CALC)); CARBON DIOXIDE 29 mmol/l (22-30); CHLORIDE 104 mmol/l (95-108); CREATININE 0.9 mg/dL (0.5-1.0); GFR FOR AFR.AMER. > 60 ML/MIN (>=60 (CALC)); GFR OTHER RACES 59 ML/MIN (>=60 (CALC)); POTASSIUM 4.9 mmol/l (3.5-5.1); SODIUM 137 mmol/l (137-146)
[2024-01-08 07:12] VITALS: BP 158/92
[2024-01-08 10:44] VITALS: BP 172/82
[2024-01-08] MEDS ORDERED: PREDNISONE10 MG PO (11:54)
== END 2024-01-08 14:34 | disposition home health service (06) | DRG 308 ==
LOC: ED 08:10 → ED-I 09:58 → ED 10:31 → ED-I 10:32 → MS2 01-06 10:50
PROVIDERS: Family Medicine; ADMIT Student in an Organized Health Care Education/Training Program; ATTEND Student in an Organized Health Care Education/Training Program
PROC: 5A09357 Assistance with Respiratory Ventilation, Less than 24 Consecutive Hours, Continuous Positive Airway Pressure (ICD-10-PCS; principal; 2024-01-05)
DX: I48.0 Paroxysmal atrial fibrillation (principal); J96.21 Acute and chronic respiratory failure with hypoxia; J44.1 Chronic obstructive pulmonary disease with (acute) exacerbation; I24.89 Other forms of acute ischemic heart disease; I10 Essential (primary) hypertension; Z99.81 Dependence on supplemental oxygen; Z87.891 Personal history of nicotine dependence; Z79.01 Long term (current) use of anticoagulants; Z90.13 Acquired absence of bilateral breasts and nipples; Z98.82 Breast implant status; Z80.3 Family history of malignant neoplasm of breast; Z20.822 Contact with and (suspected) exposure to COVID-19